=== PATIENT | male | born 1980 ===

== ENCOUNTER 2018-04-17 13:35 | Emergency (ER) | payer SELFPAY ==
[~2018-04-17] VITALS: Ht 170.2 cm; Wt 77.0 kg
[2018-04-17] MEDS ORDERED: SODIUM CHLORIDE FLUSH 10ML SYR IVF ONE (14:00)
[2018-04-17] MEDS ORDERED: SODIUM CHLORIDE 0.9% 1,000ML IVBOLUS ONE (14:00)
[2018-04-17 14:12] VITALS: BP 120/75
[2018-04-17 14:14] LABS: INTERNATIONAL NORMALIZED RATIO 1.24 (0.93-1.1); PROTHROMBIN TIME 12.8 Seconds (9.6-11.5)
[2018-04-17 14:17] LABS: ALANINE AMINOTRANSFERASE 20 U/L (12-78); ALBUMIN 2.9 g/dL (3.4-5.0); ANION GAP 5 mmol/L (5-15); CALCIUM 9.2 mg/dL (8.5-10.1); CHLORIDE 104 mmol/L (98-107); CREATININE 0.99 mg/dL (0.7-1.3)
[2018-04-17 14:20] LABS: ALKALINE PHOSPHATASE 78 U/L (45-117); BILIRUBIN,TOTAL 0.7 mg/dL (0.2-1.0); HEMOGRAM NOTE RECHECKED; MEAN CORPUSCULAR HEMOGLOBIN 20.6 pg (27.5-34.5); MEAN CORPUSCULAR VOLUME 68.7 fL (81-97); MEAN PLATELET VOLUME 8.7 fL (7.4-10.4); PLATELET COUNT 351 x10^3/uL (130-400); RED BLOOD COUNT 2.83 x10^6/uL (4.38-5.82); RED CELL DISTRIBUTION WIDTH 30.5 % (9.4-14.8); TOTAL PROTEIN 6.9 g/dL (6.4-8.2)
[2018-04-17] MEDS ORDERED: morphine SULFATE 10 MG/ML, 1ML IVPush ONE (15:00)
[2018-04-17 15:11] LABS: MD YES
[2018-04-17 15:22] LABS: ANISOCYTOSIS 2+; HYPOCHROMIA 2+; LYMPH#(MANUAL) 1.39 x10^3/uL (1-3.4); LYMPHS% (MANUAL) 22 % (22-44); MICROCYTOSIS 1+; MONOS#(MANUAL) 0.32 x10^3/uL (0.3-2.7); MONOS% (MANUAL) 5 % (2-9); SEGS% (MANUAL) 73 % (42-75)
[2018-04-17 15:23] LABS: <PLATELET ESTIMATE> ADEQUATE; <PLT MORPHOLOGY> NORMAL PLT MORPH; POLYCHROMASIA 2+
[2018-04-17] MEDS ORDERED: ZIPRASIDONE 20 MG INJ IM ONE (15:25)
== END 2018-04-17 15:58 | disposition left against medical advice (07) ==
LOC: ED 15:46
DX: D50.9 Iron deficiency anemia, unspecified (principal); F91.8 Other conduct disorders
CPT/HCPCS: 36415; 80053; 83605; 85025; 85610; 86850; 86900; 86923; 93005; 99291; J7030